=== PATIENT | male | born 1990 | race American Indian/Alaskan Native ===

== ENCOUNTER 2018-05-06 16:10 | Emergency (ER) | payer OTHER ==
[2018-05-06 16:21] VITALS: BP 149/75
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
[2018-05-06] MEDS ORDERED: IBUPROFEN PO ONE (18:00)
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
== END 2018-05-06 19:13 | disposition home or self-care (01) ==
LOC: ED 16:10
DX: R51 Headache (principal); R07.89 Other chest pain; M25.512 Pain in left shoulder; M79.602 Pain in left arm; V89.2XXA Person injured in unspecified motor-vehicle accident, traffic, initial encounter; Y93.89 Activity, other specified; Y99.8 Other external cause status; Y92.481 Parking lot as the place of occurrence of the external cause
CPT/HCPCS: 71046; 93005; 93010; 99283